=== PATIENT | female | born 1985 | race Caucasian/White ===

== ENCOUNTER 2017-06-05 20:18 | Emergency (ER) | payer OTHER ==
[2017-06-05 20:48] LABS: Hematocrit 43.1 % (30.3-42.9); Hemoglobin 14.5 gm/dl (10.1-14.3); Mean Corpuscular HGB Conc 34 % (30-34); Mean Corpuscular Hemoglobin 29 pg (28-32); Mean Corpuscular Volume 87 fl (79-97); Platelet Count 167 K/mm3 (140-440); Red Blood Count 4.93 M/mm3 (3.65-5.03); Red Cell Distribution Width 13.8 % (13.2-15.2)
[2017-06-05 21:04] LABS: Anion Gap 19 mmol/L; BUN/Creatinine Ratio 19; Blood Urea Nitrogen 13 mg/dL (7-17); Carbon Dioxide 22 mmol/L (22-30); Chloride 97.5 mmol/L (98-107); Glucose 99 mg/dL (65-100); Potassium 3.9 mmol/L (3.6-5.0); Sodium 135 mmol/L (137-145)
[2017-06-05 22:06] LABS: Bilirubin,Urine NEG (Negative); Blood,Urine MOD (Negative); Ketones,Urine NEG (Negative); Leukocyte Esterase,Urine NEG (Negative); Mucus,Urine FEW /HPF; Nitrite,Urine NEG (Negative); Protein,Urine <15 mg/dL mg/dL (Negative); Urobilinogen,Urine < 2.0 mg/dL (<2.0)
[2017-06-05 23:19] VITALS: BP 112/70
--- NOTE | 2017-06-06 | Ultrasound Report ---
FINAL REPORT EXAM: US OB TRANSVAGINAL HISTORY: 5 weeks with pain and vaginal bleed TECHNIQUE: Ultrasound obstetrical transvaginal PRIORS: None. FINDINGS: Gestational sac is present within the uterus with mean sac diameter 1.8 centimeters The yolk sac is identified. There is a pole measuring 0.27 centimeters with estimated gestational age of 6 weeks 2 days and estimated date of delivery January 27, 2018 There is a small hypoechoic focus seen adjacent to the sac consistent with a small subchorionic hemorrhage cardiac activity is observed with heart rate of 105 beats per minute right ovary is 2.5 x 1.4 by 2.4 centimeters Left ovary is 3.5 x 2.4 x 2.6 centimeters. There is a 3.3 centimeter left ovarian cyst noted Hypoechoic focus within the uterus to the right of the within the fundus noted most consistent with a fibroid measuring 2.7 x 1.9 x 1.8 centimeters IMPRESSION: Single live intrauterine gestation estimated at 6 weeks 2 days Small subchorionic hemorrhage Fibroid noted at the uterine fundus Left ovarian cyst likely corpus luteum
--- NOTE | 2017-06-06 00:01 | Ultrasound Report ---
FINAL REPORT EXAM: US OB < = 14 WEEKS FETUS HISTORY: 5 weeks with pain and vaginal bleed TECHNIQUE: Ultrasound obstetrical transabdominal PRIORS: None. FINDINGS: Gestational sac is present within the uterus with mean sac diameter 1.8 centimeters The yolk sac is identified. There is a pole measuring 0.27 centimeters with estimated gestational age of 6 weeks 2 days and estimated date of delivery January 27, 2018 There is a small hypoechoic focus seen adjacent to the sac consistent with a small subchorionic hemorrhage cardiac activity is observed with heart rate of 105 beats per minute right ovary is 2.5 x 1.4 by 2.4 centimeters Left ovary is 3.5 x 2.4 x 2.6 centimeters. There is a 3.3 centimeter left ovarian cyst noted Hypoechoic focus within the uterus to the right of the within the fundus noted most consistent with a fibroid measuring 2.7 x 1.9 x 1.8 centimeters IMPRESSION: Single live intrauterine gestation estimated at 6 weeks 2 days Small subchorionic hemorrhage Fibroid noted at the uterine fundus Left ovarian cyst likely corpus luteum
--- NOTE | 2017-06-06 00:26 | Emergency Department Report ---
ED Female HPI - General Chief complaint: Vaginal Bleeding Stated complaint: and bleeding Time Seen by Provider: 06/05/17 22:55 Source: patient Mode of arrival: Ambulatory Limitations: No Limitations - History of Present Illness Initial comments: Patient is 32 years old female 3 para 1 and 1 miscarriage. Presented to the ER with pelvic pain and vaginal bleeding since last night. Patient is 6 weeks . Patient denied any fever, nausea or vomiting. MD Complaint: vaginal bleeding, pelvic pain -: Last night Severity: moderate Severity scale (0 -10): 3 Quality: cramping Associated Symptoms: vaginal bleeding, abdominal pain. denies: vaginal discharge, nausea/vomiting, fever/chills, headaches, loss of appetite, dysuria, hematuria, rash, shortness of breath - Related Data Allergies Allergy/AdvReac Type Severity Reaction Status Date / Time adhesive tape Allergy Rash Verified 06/05/17 20:33 ED Review of Systems ROS: Stated complaint: and bleeding Other details as noted in HPI Comment: All other systems reviewed and negative Constitutional: denies: chills, fever Respiratory: denies: cough Cardiovascular: denies: chest pain, palpitations Gastrointestinal: abdominal pain. denies: nausea, vomiting, diarrhea, constipation, hematemesis Genitourinary: denies: dysuria, frequency, hematuria, discharge Neurological: denies: headache, weakness ED Past Medical Hx - Past Medical History Previous Medical History?: No - Surgical History Additional Surgical History: colectomy 01/2017 - Social History Smoking Status: Never Smoker Substance Use Type: None ED Physical Exam - General Limitations: No Limitations General appearance: alert, in no apparent distress - Head Head exam: Present: atraumatic, normocephalic, normal inspection - Eye Eye exam: Present: normal appearance, PERRL - ENT ENT exam: Present: normal exam, normal orophraynx, mucous membranes moist - Neck Neck exam: Present: normal inspection, full ROM. Absent: tenderness, meningismus, lymphadenopathy, thyromegaly - Respiratory Respiratory exam: Present: normal lung sounds bilaterally. Absent: respiratory distress, wheezes, rales, rhonchi, stridor, chest wall tenderness, accessory muscle use, decreased breath sounds, prolonged expiratory - Cardiovascular Cardiovascular Exam: Present: regular rate, normal rhythm, normal heart sounds - GI/Abdominal GI/Abdominal exam: Present: soft, normal bowel sounds. Absent: distended, tenderness, guarding, rebound, rigid, organomegaly, mass, bruit, pulsatile mass , hernia - Extremities Exam Extremities exam: Present: normal inspection, full ROM, normal capillary refill. Absent: calf tenderness - Neurological Exam Neurological exam: Present: alert, oriented X3, CN II-XII intact - Skin Skin exam: Present: warm, intact, normal color ED Course Vital Signs 06/05/17 06/05/17 06/05/17 20:29 23:18 23:19 Temperature 98.4 F Pulse Rate 94 H 88 Respiratory 20 18 18 Rate Blood Pressure 114/75 Blood Pressure 112/70 [Left] O2 Sat by Pulse 97 Oximetry ED Medical Decision Making - Lab Data Result diagrams: 06/05/17 20:35 06/05/17 20:35 - Radiology Data Radiology results: report reviewed Referring Physician: CALEB TOURE Patient Name: SASCHA LIU Date of : 1985 Sex: Female Report Date: 2017-06-05 Report Status: Finalized Findings [address] [address] Ultrasound Report Signed Patient: SASCHA LIU MR#: [id number] : 1985 Acct:[id number] Age/Sex: 32 / F ADM Date: 06/05/17 Loc: ED Attending Dr: Ordering Physician: CALEB TOURE Date of Service: 06/05/17 Procedure(s): US OB transvaginal Accession Number(s): [id number] cc: CALEB TOURE FINAL REPORT EXAM: US OB TRANSVAGINAL HISTORY: 5 weeks with pain and vaginal bleed TECHNIQUE: Ultrasound obstetrical transvaginal PRIORS: None. FINDINGS: Gestational sac is present within the uterus with mean sac diameter 1.8 centimeters The yolk sac is identified. There is a pole measuring 0.27 centimeters with estimated gestational age of 6 weeks 2 days and estimated date of delivery January 27, 2018 There is a small hypoechoic focus seen adjacent to the sac consistent with a small subchorionic hemorrhage cardiac activity is observed with heart rate of 105 beats per minute right ovary is 2.5 x 1.4 by 2.4 centimeters Left ovary is 3.5 x 2.4 x 2.6 centimeters. There is a 3.3 centimeter left ovarian cyst noted Hypoechoic focus within the uterus to the right of the within the fundus noted most consistent with a fibroid measuring 2.7 x 1.9 x 1.8 centimeters IMPRESSION: Single live intrauterine gestation estimated at 6 weeks 2 days Small subchorionic hemorrhage Fibroid noted at the uterine fundus Left ovarian cyst likely corpus luteum Transcribed By: SHEEBA Dictated By: YAA DEGROOT MD Electronically Authenticated By: YAA DEGROOT MD Signed Date/Time: 06/05/171955 DD/ 55 TD/TT: 06/05/171955 Critical care attestation.: If time is entered above; I have spent that time in minutes in the direct care of this critically ill patient, excluding procedure time. ED Disposition Clinical Impression: Abdominal pain affecting , antepartum, Vaginal bleeding during , antepartum Disposition: DC-01 TO HOME OR SELFCARE Is pt being admited?: No Condition: Stable Instructions: Abdominal Pain in (ED) Referrals: PRIMARY CAREMD [Primary Care Provider] - 3-5 Days Forms: Work/School Release Form(ED)
== END 2017-06-06 00:45 | disposition home or self-care (01) ==
LOC: ED 20:18
DX: O20.9 Hemorrhage in early pregnancy, unspecified (principal); Z3A.01 Less than 8 weeks gestation of pregnancy; Z91.048 Other nonmedicinal substance allergy status
CPT/HCPCS: 36415; 76801; 76817; 80048; 81001; 84702; 85027; 86900; 86901